=== PATIENT | female | born 1980 | race Caucasian/White ===

== ENCOUNTER → 2016-08-04 | Outpatient (CLI) | payer MEDICAID | LOC: FIMAGING 12:11 | PROVIDERS: ATTEND Family Medicine | DX: O09.521 Supervision of elderly multigravida, first trimester (principal); Z3A.12 12 weeks gestation of pregnancy ==

== ENCOUNTER → 2016-09-22 | Outpatient (CLI) | payer MEDICAID | LOC: FIMAGING 11:09 | PROVIDERS: ATTEND Family Medicine | DX: O09.522 Supervision of elderly multigravida, second trimester (principal); Z3A.19 19 weeks gestation of pregnancy ==

== ENCOUNTER → 2016-10-10 | Outpatient (CLI) | payer MEDICAID | LOC: FIMAGING 14:02 | PROVIDERS: ATTEND Family Medicine | DX: O09.522 Supervision of elderly multigravida, second trimester (principal); O09.292 Supervision of pregnancy with other poor reproductive or obstetric history, second trimester; O26.872 Cervical shortening, second trimester; Z3A.22 22 weeks gestation of pregnancy ==

== ENCOUNTER → 2016-10-18 | Outpatient (CLI) | payer MEDICAID | LOC: FIMAGING 08:18 | PROVIDERS: ATTEND Family Medicine | DX: O09.521 Supervision of elderly multigravida, first trimester (principal); O09.291 Supervision of pregnancy with other poor reproductive or obstetric history, first trimester; Z3A.23 23 weeks gestation of pregnancy ==

== ENCOUNTER → 2017-10-04 | Outpatient (CLI) | payer OTHER | DX: R16.0 Hepatomegaly, not elsewhere classified (principal); K76.9 Liver disease, unspecified ==

== ENCOUNTER → 2018-03-13 | Outpatient (CLI) | payer BC | LOC: FIMAGING 10:20 | PROVIDERS: ATTEND Physician Assistant | DX: Z03.89 Encounter for observation for other suspected diseases and conditions ruled out (principal) ==